=== PATIENT | female | born 1980 | race Caucasian/White ===

== ENCOUNTER → 2016-06-19 | Outpatient (CLI) | payer OTHER ==
[~2016-06-19] MED LIST: CLARITIN10 MG PO; LISINOPRIL20 MG PO; METOPROLOL TART50 MG PO; MULTIVITAMINS1 EAC1 PO; NORCO 5-325 TA1 EACH PO; PRAVASTATIN SOD40 MG PO; SINGULAIR10 MG PO
== END ==
LOC: LBRF 12:32
DX: N39.0 Urinary tract infection, site not specified (principal); R10.9 Unspecified abdominal pain
CPT/HCPCS: 87077; 87086; 87186